=== PATIENT | female | born 1990 | race Two or more races ===

== ENCOUNTER → 2017-02-07 | Outpatient (CLI) | payer MEDICAID ==
[~2017-02-07] MED LIST: IBUP-1222 PO; LEVO125T5 PO; PREN1TAB62 PO
== END | disposition home or self-care (01) ==
LOC: CFH 08:04
PROVIDERS: ATTEND Internal Medicine Cardiovascular Disease
DX: I07.1 Rheumatic tricuspid insufficiency (principal)
CPT/HCPCS: 93306

== ENCOUNTER → 2018-06-04 | Outpatient (CLI) | payer MEDICAID | END | disposition home or self-care (01) | LOC: RAD 14:42 | PROVIDERS: ATTEND Family Medicine | DX: R10.11 Right upper quadrant pain (principal); Z79.899 Other long term (current) drug therapy | CPT/HCPCS: 76700 ==

== ENCOUNTER → 2018-08-20 | Outpatient (CLI) | payer MEDICAID ==
[~2018-08-20] MED LIST changes: +SINCALIDE (KINEVAC) 5 MCG ONE
== END | disposition home or self-care (01) ==
LOC: RAD 09:55
PROVIDERS: ATTEND Family Medicine
DX: R10.11 Right upper quadrant pain (principal)
CPT/HCPCS: 78227; A9537; J2805

== ENCOUNTER 2019-11-25 17:16 | Emergency (ER) | payer MEDICAID ==
[~2019-11-25] VITALS: Ht 157.5 cm; Wt 83.7 kg
[~2019-11-25 17:16] MED LIST changes: -SINCALIDE (KINEVAC) 5 MCG ONE
--- NOTE | 2019-11-25 18:01 | NUR ---
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
--- NOTE | 2019-11-25 18:13 | NUR ---
C/O BODY ACHES, RAI, COUGH AND VOMITING STARTED THIS MORNING
[2019-11-25] MEDS ORDERED: SODIUM CHLORIDE 0.9% 1,000ML IVBOLUS ONE (18:30)
[2019-11-25] MEDS ORDERED: ACETAMINOPHEN 500 MG TABLET PO ONE (18:30)
[2019-11-25] MEDS ORDERED: KETOROLAC 30 MG/1 ML IVPush ONE (18:30)
[2019-11-25] MEDS ORDERED: KETOROLAC 30 MG/1 ML ONE ×2 (18:37→18:38)
[2019-11-25] MEDS ORDERED: ACETAMINOPHEN 500 MG TABLET ONE (18:37)
--- NOTE | 2019-11-25 18:46 | NUR ---
MEDICATED PER MAR AND IV FLUIDS INFUSING. REPORT TO JOSSY DAMIAN.
--- NOTE | 2019-11-25 19:03 | NUR ---
Assumed care of pt. Pt alert, sitting up on gurney. VS retaken.
[2019-11-25 19:49] LABS: RAPID INFLUENZA A Negative (Negative); RAPID INFLUENZA B Negative (Negative)
--- NOTE | 2019-11-25 20:57 | NUR ---
Pt alert and resting on gurney. Pt d/c'd to self care. Education provided including fluids, OTC meds, prescription, follow-up, home care, and S/Sx to return. Pt VU. Pt ambulated out of ER.
[2019-11-25 20:58] VITALS: BP 103/62
== END 2019-11-25 20:59 | disposition home or self-care (01) ==
LOC: ED 20:30
DX: B34.9 Viral infection, unspecified (principal); R11.10 Vomiting, unspecified
CPT/HCPCS: 71045; 87400; 93005; 96361; 96374; 99284; J1885; J7030